=== PATIENT | female | born 1975 | race Caucasian/White ===

== ENCOUNTER 2017-01-17 09:44 | Outpatient (CLI) | payer BC ==
[2017-01-17 11:01] LABS: #Basophils 0.1 thou/uL (0.0-0.2); #Eosinphils 0.2 thou/uL (0.0-0.7); #Lymphocytes 1.9 thou/uL (1.20-3.40); #Monocytes 0.4 thou/uL (0.11-0.59); #Neutrophils 3.6 thou/uL (1.40-6.50); %Basophils 1.1 % (0.0-1.0); %Eosinophils 3.1 % (0.0-10.0); %Monocytes 6.4 % (0.0-10.0); Mean Platelet Volume 8.4 fL (7.4-10.4); Red Blood Cell (RBC) Count 4.63 mill/uL (4.20-5.40); White Blood Cell (WBC) Count 6.1 thou/uL (4.8-10.8)
[2017-01-17 11:23] LABS: ALT (SGPT) 24 U/L (0-55); AST (SGOT) 14 U/L (5-34); Alkaline Phosphatase 77 U/L (40-150); Anion Gap 12 mmol/L (10-20); BUN (Urea Nitrogen) 9 mg/dL (7.0-18.7); Bilirubin, Total 1.5 mg/dL (0.2-1.2); Calc. Creatinine Clearance 0 mL/min (70-130); Calcium 9.2 mg/dL (7.8-10.44); Carbon Dioxide 27 mmol/L (22-29); Chloride 106 mmol/L (98-107); Estimated GFR-MDRD 81; Globulin 2.8 g/dL (2.4-3.5); LDL Cholesterol, Calculated 95 mg/dL
== END 2017-01-17 09:45 | disposition home or self-care (01) ==
LOC: HPCALD 09:44
PROVIDERS: ATTEND Physician Assistant
DX: I10 Essential (primary) hypertension (principal)
CPT/HCPCS: 36415; 80053; 80061; 84443; 85025

== ENCOUNTER 2021-03-27 20:29 | Emergency (ER) | payer OTHER ==
[2021-03-27] MEDS ORDERED: Cyclobenzaprine 10 MG TAB ONE (21:16)
[2021-03-27] MEDS ORDERED: Ketorolac Tromethamine 30 MG/ML VIAL ONE (21:16)
== END 2021-03-27 21:32 | disposition home or self-care (01) ==
LOC: BURERS 20:29
DX: S20.212A Contusion of left front wall of thorax, initial encounter (principal); M62.838 Other muscle spasm; M54.2 Cervicalgia; M25.512 Pain in left shoulder; I10 Essential (primary) hypertension; V89.2XXA Person injured in unspecified motor-vehicle accident, traffic, initial encounter
CPT/HCPCS: 71045; 96372; J1885

== ENCOUNTER 2021-05-16 08:33 | Emergency (ER) | payer OTHER ==
[2021-05-16] MEDS ORDERED: Clindamycin 150 MG CAP ONE (09:14)
[2021-05-16] MEDS ORDERED: Ketorolac Tromethamine 30 MG/ML VIAL ONE (09:18)
== END 2021-05-16 09:26 | disposition home or self-care (01) ==
LOC: BURERS 08:33
DX: K04.7 Periapical abscess without sinus (principal); K02.9 Dental caries, unspecified; L03.211 Cellulitis of face; K03.81 Cracked tooth; I10 Essential (primary) hypertension; Z79.899 Other long term (current) drug therapy
CPT/HCPCS: 96372; 99283; J1885

== ENCOUNTER 2021-11-07 13:16 | Emergency (ER) | payer OTHER | END 2021-11-07 14:03 | disposition home or self-care (01) | LOC: BURERS 13:16 | DX: H81.399 Other peripheral vertigo, unspecified ear (principal); R07.89 Other chest pain; I10 Essential (primary) hypertension ==

== ENCOUNTER 2022-01-16 22:03 | Emergency (ER) | payer BC, OTHER | END 2022-01-16 23:29 | disposition home or self-care (01) | LOC: BURERS 22:03 | DX: J20.9 Acute bronchitis, unspecified (principal); I10 Essential (primary) hypertension | CPT/HCPCS: 87804; J7620 ==

== ENCOUNTER 2022-07-03 11:44 | Outpatient (CLI) | payer BC | END 2022-07-03 11:45 | disposition home or self-care (01) | LOC: BUREKG 11:44 | PROVIDERS: ATTEND Physician Assistant | DX: R55 Syncope and collapse (principal) | CPT/HCPCS: 93005; 93010 ==